=== PATIENT | male | born 1940 ===

== ENCOUNTER 2017-03-11 13:28 | Outpatient (RCR) | payer MEDICARE, MEDICAID | END 2017-03-30 | disposition home or self-care (01) | LOC: WCC 13:28 | DX: L89.153 Pressure ulcer of sacral region, stage 3 (principal); L89.312 Pressure ulcer of right buttock, stage 2; G82.21 Paraplegia, complete; E11.9 Type 2 diabetes mellitus without complications; Z91.040 Latex allergy status; Z88.8 Allergy status to other drugs, medicaments and biological substances | CPT/HCPCS: 11042 ==

== ENCOUNTER 2017-03-11 15:46 | Outpatient (CLI) | payer MEDICARE, MEDICAID | END 2017-03-11 17:46 | disposition home or self-care (01) | LOC: LAB 15:46 | DX: E46 Unspecified protein-calorie malnutrition (principal) | CPT/HCPCS: 84134 ==

== ENCOUNTER 2017-04-01 11:00 | Outpatient (RCR) | payer MEDICARE, MEDICAID | END 2017-04-30 | disposition home or self-care (01) | LOC: WCC 11:00 | DX: L89.314 Pressure ulcer of right buttock, stage 4 (principal); G82.21 Paraplegia, complete; E11.9 Type 2 diabetes mellitus without complications; G82.20 Paraplegia, unspecified; Z91.040 Latex allergy status | CPT/HCPCS: 11042; 11043; G0463 ==

== ENCOUNTER 2017-04-22 12:39 | Outpatient (CLI) | payer MEDICARE, MEDICAID ==
[~2017-04-22] VITALS: Ht 142.2 cm; Wt 68.0 kg
== END 2017-04-22 14:39 | disposition home or self-care (01) ==
LOC: LAB 12:39
DX: E46 Unspecified protein-calorie malnutrition (principal); Z91.040 Latex allergy status; Z88.8 Allergy status to other drugs, medicaments and biological substances
CPT/HCPCS: 84134

== ENCOUNTER 2017-06-10 10:30 | Outpatient (RCR) | payer MEDICARE, MEDICAID | END 2017-06-30 | disposition home or self-care (01) | LOC: WCC 10:30 | DX: L89.314 Pressure ulcer of right buttock, stage 4 (principal); G82.21 Paraplegia, complete; E11.9 Type 2 diabetes mellitus without complications | CPT/HCPCS: 11043; 97605 ==

== ENCOUNTER 2017-07-08 11:07 | Outpatient (RCR) | payer MEDICARE, MEDICAID | END 2017-07-31 | disposition home or self-care (01) | LOC: WCC 11:07 | DX: L89.314 Pressure ulcer of right buttock, stage 4 (principal); G82.21 Paraplegia, complete; Z91.040 Latex allergy status; E11.9 Type 2 diabetes mellitus without complications; Z88.8 Allergy status to other drugs, medicaments and biological substances | CPT/HCPCS: 11042; 97605 ==

== ENCOUNTER 2017-08-05 11:32 | Outpatient (RCR) | payer MEDICARE, MEDICAID | END 2017-08-28 | disposition home or self-care (01) | LOC: WCC 11:32 | DX: L89.314 Pressure ulcer of right buttock, stage 4 (principal); G82.21 Paraplegia, complete; Z88.8 Allergy status to other drugs, medicaments and biological substances; Z91.040 Latex allergy status; E11.9 Type 2 diabetes mellitus without complications | CPT/HCPCS: 11042; 15271; Q4133 ==

== ENCOUNTER 2017-09-09 10:39 | Outpatient (RCR) | payer MEDICARE, MEDICAID ==
[~2017-09-09] VITALS: Ht 160 cm; Wt 59.0 kg
[2017-09-18] MEDS ORDERED: Lidocaine 1% MPF 10mg/ml 5ml INJ ONE (17:00)
== END 2017-09-28 | disposition home or self-care (01) ==
LOC: WCC 10:39
DX: L89.314 Pressure ulcer of right buttock, stage 4 (principal); G82.21 Paraplegia, complete; R22.32 Localized swelling, mass and lump, left upper limb; Z88.8 Allergy status to other drugs, medicaments and biological substances; Z91.040 Latex allergy status; E11.9 Type 2 diabetes mellitus without complications
CPT/HCPCS: 11100

== ENCOUNTER 2017-09-30 08:51 | Outpatient (RCR) | payer MEDICARE, MEDICAID | END 2017-10-28 | disposition home or self-care (01) | LOC: WCC 08:51 | DX: L89.314 Pressure ulcer of right buttock, stage 4 (principal); G82.21 Paraplegia, complete; R22.32 Localized swelling, mass and lump, left upper limb; Z91.040 Latex allergy status; E11.9 Type 2 diabetes mellitus without complications | CPT/HCPCS: G0463 ==

== ENCOUNTER 2019-01-26 12:55 | Outpatient (RCR) | payer MEDICARE, MEDICAID | END 2019-01-28 | disposition home or self-care (01) | LOC: WCC 12:55 | DX: L89.313 Pressure ulcer of right buttock, stage 3 (principal); G82.22 Paraplegia, incomplete; E11.9 Type 2 diabetes mellitus without complications; I10 Essential (primary) hypertension; G82.20 Paraplegia, unspecified; Z91.040 Latex allergy status; Z88.8 Allergy status to other drugs, medicaments and biological substances | CPT/HCPCS: 11042 ==

== ENCOUNTER 2019-02-09 12:51 | Outpatient (RCR) | payer MEDICARE, MEDICAID | END 2019-02-28 | disposition home or self-care (01) | LOC: WCC 12:51 | DX: L89.313 Pressure ulcer of right buttock, stage 3 (principal); G82.22 Paraplegia, incomplete; Z88.8 Allergy status to other drugs, medicaments and biological substances; Z91.040 Latex allergy status; E11.9 Type 2 diabetes mellitus without complications; I10 Essential (primary) hypertension; G82.20 Paraplegia, unspecified | CPT/HCPCS: 11042 ==

== ENCOUNTER 2019-03-09 12:41 | Outpatient (RCR) | payer MEDICARE, MEDICAID | END 2019-03-30 | disposition home or self-care (01) | LOC: WCC 12:41 | DX: L89.313 Pressure ulcer of right buttock, stage 3 (principal); G82.22 Paraplegia, incomplete; Z91.040 Latex allergy status; I10 Essential (primary) hypertension; E11.9 Type 2 diabetes mellitus without complications | CPT/HCPCS: G0463 ==